=== PATIENT | male | born 1955 | race African-American/Black ===

== ENCOUNTER 2016-09-09 18:15 | Emergency (ER) | payer OTHER | END 2016-09-09 21:05 | disposition home or self-care (01) | LOC: ER 18:15 | DX: L02.414 Cutaneous abscess of left upper limb (principal); Z23 Encounter for immunization; E10.8 Type 1 diabetes mellitus with unspecified complications; I10 Essential (primary) hypertension; J44.9 Chronic obstructive pulmonary disease, unspecified; Z86.73 Personal history of transient ischemic attack (TIA), and cerebral infarction without residual deficits; I25.10 Atherosclerotic heart disease of native coronary artery without angina pectoris; Z95.5 Presence of coronary angioplasty implant and graft; F17.210 Nicotine dependence, cigarettes, uncomplicated; W10.8XXA Fall (on) (from) other stairs and steps, initial encounter; Y92.9 Unspecified place or not applicable; Z79.84 Long term (current) use of oral hypoglycemic drugs; Z79.899 Other long term (current) drug therapy; Z88.5 Allergy status to narcotic agent; Z88.0 Allergy status to penicillin | CPT/HCPCS: 36415; 80307; 90471; 96365; J3370 ==